=== PATIENT | female | born 1970 | race Caucasian/White ===

== ENCOUNTER 2017-12-01 00:04 | Emergency (ER) | payer OTHER ==
[~2017-12-01] VITALS: Ht 167.6 cm; Wt 131.5 kg
[~2017-12-01 00:04] MED LIST: AUGMENTIN875 MG PO; IBUPROFEN800 MG PO; LORTAB 5-325 M1 EACH PO; NAPROSYN500 MG PO; NORCO 7.5/321 TABLET PO; PEN-VEE K,VEET500 MG PO; ROBAXIN500 MG PO; TRAMADOL HCL50 MG PO
[2017-12-01 00:06] VITALS: BP 131/113
== END 2017-12-01 02:55 | disposition left against medical advice (07) ==
LOC: EME 00:04
DX: M79.89 Other specified soft tissue disorders (principal); R20.0 Anesthesia of skin; R20.8 Other disturbances of skin sensation; M25.561 Pain in right knee; Z53.21 Procedure and treatment not carried out due to patient leaving prior to being seen by health care provider